=== PATIENT | male | born 1955 | race Caucasian/White ===

== ENCOUNTER 2016-09-02 10:35 | Day surgery (SDC) | payer MEDICARE ==
[~2016-09-02] VITALS: Ht 167.6 cm; Wt 93.0 kg
[~2016-09-02 10:35] MED LIST: Lactated Ringer's 1,000 ML IV ONE; VIAG25T PO
[2016-09-02] MEDS ORDERED: Lidocaine PF 1% 30 mL Inj ONE (10:36)
[2016-09-02] MEDS ORDERED: Propofol 10,000 mCg/mL 20 mL Inj ONE (10:36)
[2016-09-02 11:08] VITALS: BP 141/97; PULSE 100; RESP 16; O2SAT 96
[2016-09-02] MEDS ORDERED: LISI-567 PO (11:08)
[2016-09-02] MEDS ORDERED: CREST10T PO (11:08)
[2016-09-02] MEDS ORDERED: Lactated Ringer's 1,000 ML IV SCH (11:23)
--- NOTE | 2016-09-02 11:23 | PCM.HPANE ---
Patient Data Date of Service: Sep 02, 2016 Surgeon Admitting Provider: Attending Provider:Alvarez Navarrete MD Primary Care Physician:Noni Fontanez MD Other Provider:Adrienne Castro Anesthesia Reason for Visit Tubular Adenoma Of Colon Ht/WT & BMI Height (Feet): 5 Height (Inches): 6 Weight (Kilograms): 93 Body Mass Index 32.00 Allergies Coded Allergies: No Known Allergies (Verified Allergy, Unknown, 09/02/16) Past Anesthesia History Anesthesia History: Denies:: Anesthesia Reactions, Fam Anesthesia Reaction, Fam Malignant Hypertherm, Malignant Hyperthermia Diabetes History Hx Diabetes?: No MRSA MRSA: No Medications Hypertension Medication: Yes Home Meds Incl Beta Prabhakar: No Reported Medications Rosuvastatin Calcium (Crestor)10 Mg [id number] Mg PO DAILY 30 Days Ref 0 09/02/16 Lisinopril 20 Mg [id number] Mg PO DAILY 30 Days Ref 0 09/02/16 Sildenafil Citrate (Viagra)25 Mg [id number] Mg PO UD PRN ed Ref 0 09/01/16 History History of ENT Problems?: No Hx of Heart Problems?: Yes Cardiovascular History: Positive for:: Hypertension Denies:: AICD Pacemaker Valvular Heart Disease Hx of Respiratory Problem?: No Hx Neurologic Problems?: No Neurological History: Denies:: CVA Hx of GI Problems?: Yes Hx of Problems?: No HX of Peritoneal Dialysis: No Hx Musculoskeletal Problems?: No Hx of Psycho/Social Problems?: No Hx Surgeries?: Yes (TUMOR IN EAR-GAMMA RAY RADIATION, INGUINAL HERNIA REPAIR) Hx Diabetes: No Hx Alcohol Use: Yes (COUPLE DRINKS PER WEEK)Hx Substance Use: Yes Smoking Status: Former Smoker Stop/Bang Treated for Sleep Apnea?: No Do You Have a CPAP Machine?: No S-Snoring: Do You Snore Loudly: No T-Tired: feel tired, fatigued: No O-Obsered: Observed not breath: No P-Blood Pressure: treated: No B- Body Mass Index > 35 kg/m2: No A- Age over 50: Yes N- Neck Large Circumference: Yes G- Gender Male: Yes BENSON Total Score: 3 Risk Assessment Category Category 1A: Patient has history of documented sleep apnea, and HAS NOT received any narcotic, sedative or anesthesia administration during this stay. Category 1B: Patient has history of documented sleep apnea, and HAS received any narcotic , sedative or anesthesia administration during this stay Category 2: Patient has SUSPECTED Obstructive Sleep Apnea, and HAS received any narcotic , sedative or anesthesia administration during this stay. Category 3: Patient has SUSPECTED Obstructive Sleep Apnea and HAS NOT received narcotic, sedative or anesthesia administration during this stay. Category 4: Outpatient in Procedural Areas with known sleep apnea or who screen positive for High Risk via the STOP/BANG questionnaire. Exam Exam Vital Signs Vital Signs Date Time Temp Pulse Resp B/P Pulse Ox O2 Delivery O2 Flow Rate FiO2 09/02/16 11:08 36.7 100 16 141/97 96 Room Air General Appearance: Alert, Oriented X3, Cooperative HEENT/AIRWAY: MP 3, Neck Movement (OK, luis) Lungs: Clear to Auscultation, Normal Air Movement Heart: Regular Rate/Rhythm, Normal S1, Normal S2 Plan Impression Patient chart reviewed, patient interviewed and anesthestic plan with risks, benefits, and alternatives discussed, and informed consent obtained. NPO Status: > 2 hours ASA Physical Status: ASA2 Mod Systemic Disease Anesthetic Plan: MAC Bene/Risks/Altern/Consents: Yes HP Complete Prior to Induction: Yes Other MNC - History of failed moderate sedation Hilario Garcia MD Sep 02, 2016 11:23
[2016-09-02] MEDS ORDERED: Ondansetron 2 mg/mL 2 mL Inj IVPUSH PRN (11:25)
[2016-09-02] MEDS ORDERED: Atropine 0.4 mg/mL Inj IVPUSH PRN (11:25)
[2016-09-02] MEDS ORDERED: MetoCLOpramide 5 mg/mL 2 mL Inj IVPUSH PRN (11:25)
[2016-09-02 11:42] VITALS: BP 121/82; PULSE 101; RESP 16; O2SAT 95
[2016-09-02 11:52] VITALS: BP 124/76; PULSE 90; RESP 14; O2SAT 95
[2016-09-02 11:58] VITALS: BP 124/76; PULSE 91; RESP 16; O2SAT 97
--- NOTE | 2016-09-02 12:09 | PCM.ANEP1 ---
Post Anesthesia Phase 1 PACU Phase 1 Assessment Date of Service: Sep 02, 2016 Vital Signs Vital Signs Date Time Temp Pulse Resp B/P Pulse Ox O2 Delivery O2 Flow Rate FiO2 09/02/16 11:58 91 16 124/76 97 Room Air 09/02/16 11:52 90 14 124/76 95 Room Air 09/02/16 11:42 101 16 121/82 95 Room Air 09/02/16 11:08 36.7 100 16 141/97 96 Room Air Anesthetic Administered: MAC Level of Alertness: Awake, talking BENDER's with Equal Strength: Yes Pain: No Nausea or Vomiting: No Oxygen Delivery: Room Air Lungs: Normal Air Movement Hilario Garcia MD Sep 02, 2016 12:09
--- NOTE | 2016-09-02 12:11 | PCM.ANEP2 ---
Post Anesthesia Evaluation ASA/CMS Post Anesthesia Date of Service: Sep 02, 2016 VS in Patient's Normal Range?: Yes Resp Stable; Airway Patent?: Yes CV Function & Hydration Stable: Yes Mental Status Recovered?: Yes Pain control Satisfactory?: Yes N/V Control Satisfactory?: Yes Hilario Garcia MD Sep 02, 2016 12:11
--- NOTE | 2016-09-02 14:25 | ENDO ---
[address] [address] ENDOSCOPY PROCEDURE PATIENT: RODRIGO REINA : 1955 MR#: [id number] ADMIT: 09/02/2016 JOB ID: [id number] DATE: 09/02/2016 PROCEDURE: Colonoscopy. PREOPERATIVE DIAGNOSIS(ES): History of tubular adenoma polyps. POSTOPERATIVE DIAGNOSIS(ES): Normal colonoscopy. ANESTHESIA: Monitored anesthesia care. COMPLICATIONS: None. BLOOD LOSS: Minimal. DESCRIPTION OF PROCEDURE: After risks and benefits were explained to the patient, informed consent was obtained. After anesthesia administered, colonoscope was then inserted from the rectum to the cecum. Mucosa carefully examined. Prep of the patient was excellent. After procedure was done, the scope was withdrawn and the procedure terminated. FINDINGS: Upon inspection of the anus, no masses, hemorrhoids, ulcers or fissures that were seen. Throughout the entire examination, there were no polyps, masses or lesions. Retroflexion was normal. IMPRESSION: Normal colonoscopy. RECOMMENDATIONS: Repeat colonoscopy in five years given the history of tubular adenoma and polyps.
== END 2016-09-02 23:59 | disposition home or self-care (01) ==
LOC: END 10:35
PROVIDERS: ATTEND Internal Medicine Gastroenterology
DX: Z12.11 Encounter for screening for malignant neoplasm of colon (principal); I10 Essential (primary) hypertension; Z86.010 Personal history of colon polyps; Z79.899 Other long term (current) drug therapy; Z87.891 Personal history of nicotine dependence
CPT/HCPCS: G0105; J7120